=== PATIENT | female | born 1975 | race Caucasian/White ===

== ENCOUNTER 2018-09-18 18:14 | Emergency (ER) | payer MEDICAID ==
[~2018-09-18] VITALS: Ht 160 cm; Wt 70.2 kg
[2018-09-18 19:11] VITALS: BP 123/82
--- NOTE | 2018-09-18 19:15 | NUR ---
PT GIVEN DC INSTRUCTIONS AND SCRIPT. PT EDUCATED REGARDING DC MEDICATION WHICH IS CLEOCIN. PT AMB TO DC WITH STEADY GAIT. NO ACUTE DISTRESS AT DC.
== END 2018-09-18 19:13 | disposition home or self-care (01) ==
LOC: ED 18:42
DX: K02.9 Dental caries, unspecified (principal)
CPT/HCPCS: 99283

== ENCOUNTER 2018-12-21 06:03 | Emergency (ER) | payer MEDICAID ==
[~2018-12-21] VITALS: Ht 162.6 cm; Wt 74.2 kg
[2018-12-21 06:38] VITALS: BP 127/75
--- NOTE | 2018-12-21 06:38 | NUR ---
PT. TO ED WITH C/O COUGH X 2 WEEKS, WORSE OVER THE LAST COUPLE OF DAYS. DENIES CP. STATES "IT FEELS LIKE I AM DROWNING". PT. ABLE TO SPEAK IN FULL SENTENCES. RESP EVEN, NON-LABORED. EKG DONE IN TRIAGE AND PRESENTED TO ERMD. CONTINUOUS PULSE OX, B/P, AND HEART MONITORS IN PLACE. CALL LIGHT IN REACH. DR. GRANGER AT TO EVAL PT. AND DISCUSS POC.
--- NOTE | 2018-12-21 06:55 | NUR ---
PATIENT REPORT FROM LUZMA SHETH. PATIENT IN BED, RAILS UP. ON .
--- NOTE | 2018-12-21 06:57 | NUR ---
REPORT TO KELLY DEJESUS.
[2018-12-21] MEDS ORDERED: ACETAMINOPHEN 500 MG TABLET ONE (06:58)
[2018-12-21] MEDS ORDERED: SODIUM CHLORIDE FLUSH 10ML SYR IVF ONE (07:00)
[2018-12-21] MEDS ORDERED: ACETAMINOPHEN 500 MG TABLET PO ONE (07:00)
[2018-12-21] MEDS ORDERED: SODIUM CHLORIDE 0.9% 1,000ML IVBOLUS ONE (07:00)
--- NOTE | 2018-12-21 07:09 | NUR ---
WALKED INTO PATIENTS ROOM, AND SHE WAS VISIBLY ANGRY. SHE STATES SHE HAS PNEUMONIA AND SHE WANTS TO SEE A REAL DOCTOR. ASSURED HER THAT SHE IS IN THE RIGHT PLACE AND WE ARE HERE TO HELP HER. SHE THEN SAID SHE WANTS WATER AND THAT NOBODY WILL GIVE IT TO HER. SAID THAT i BROUGHT HER A SMALL GLASS OF WATER TO TAKE HER TYLENOL WITH, SHE THEN CHUGGED THE HALF GLASS OF WATER WITHOUT TAKING THE TYLENOL. GOT ANOTHER HALF GLASS OF WATER AND ASKED THIS TIME IF SHE CAN TAKE THE MEDICATIONS FIRST. SHE CONTINUED TO BE ANGRY, SWEARING AT ME AND CALLING ME NAMES AND ULTIMATLY SAID, "I'M LEAVING, I'M AN ADULT AND F YOU I JUST WANT TO LEAVE". TOLD , WHO CAME TO ROOM. PATIENT SIGNED AMA FORMS AND LEFT. ENCOURAGED HER TO STAY.
== END 2018-12-21 07:14 | disposition left against medical advice (07) ==
LOC: ED 06:59
DX: J18.9 Pneumonia, unspecified organism (principal); R50.9 Fever, unspecified; Z86.19 Personal history of other infectious and parasitic diseases
CPT/HCPCS: 93005; 99283; J7030